=== PATIENT | female | born 1960 | race Caucasian/White ===

== ENCOUNTER 2016-12-25 11:09 | Emergency (ER) | payer MEDICARE, SELFPAY ==
[~2016-12-25 11:09] MED LIST: ALBUTEROL HFA6.7 GM INH; BENADRYL25 MG PO; DICLOFENAC POTA50 M1 PO; DOCUSATE SODIU1 EACH PO; FEOSOL325 MG PO; FIORICET/BUTALBI1 EA PO; IBUPROFEN800 MG PO; K-DUR20 MEQ PO; PHENERGAN25 M1 PO; PROZAC40 MG PO; TOPAMAX200 MG PO; ZEBETA5 MG PO
== END 2016-12-25 13:45 | disposition home or self-care (01) ==
LOC: ER 11:09
DX: R10.84 Generalized abdominal pain (principal); R19.7 Diarrhea, unspecified; R11.2 Nausea with vomiting, unspecified; F32.9 Major depressive disorder, single episode, unspecified; F43.10 Post-traumatic stress disorder, unspecified; K21.9 Gastro-esophageal reflux disease without esophagitis; G43.909 Migraine, unspecified, not intractable, without status migrainosus; Z90.49 Acquired absence of other specified parts of digestive tract; Z90.710 Acquired absence of both cervix and uterus; Z79.899 Other long term (current) drug therapy; Z88.2 Allergy status to sulfonamides; Z88.5 Allergy status to narcotic agent; Z88.8 Allergy status to other drugs, medicaments and biological substances
CPT/HCPCS: 36415; 96374; 96375; 96376; J1885

== ENCOUNTER 2017-01-11 00:23 | Emergency (ER) | payer MEDICARE, OTHER | END 2017-01-11 01:32 | disposition home or self-care (01) | LOC: ER 00:23 | DX: S90.562A Insect bite (nonvenomous), left ankle, initial encounter (principal); S90.561A Insect bite (nonvenomous), right ankle, initial encounter; K21.9 Gastro-esophageal reflux disease without esophagitis; F43.10 Post-traumatic stress disorder, unspecified; G47.30 Sleep apnea, unspecified; F32.9 Major depressive disorder, single episode, unspecified; Z90.49 Acquired absence of other specified parts of digestive tract; Z90.710 Acquired absence of both cervix and uterus; Z99.81 Dependence on supplemental oxygen; Z79.899 Other long term (current) drug therapy; Z88.2 Allergy status to sulfonamides; Z88.5 Allergy status to narcotic agent; Z88.8 Allergy status to other drugs, medicaments and biological substances; W57.XXXA Bitten or stung by nonvenomous insect and other nonvenomous arthropods, initial encounter ==

== ENCOUNTER → 2017-01-23 | Day surgery (SDC) | payer MEDICARE, OTHER | END | disposition home or self-care (01) | LOC: SDC 09:15 | DX: N30.10 Interstitial cystitis (chronic) without hematuria (principal); G89.29 Other chronic pain; R10.2 Pelvic and perineal pain; R30.0 Dysuria; N21.0 Calculus in bladder; Z87.440 Personal history of urinary (tract) infections; M79.7 Fibromyalgia; I45.6 Pre-excitation syndrome; Z90.710 Acquired absence of both cervix and uterus; Z90.49 Acquired absence of other specified parts of digestive tract; K21.9 Gastro-esophageal reflux disease without esophagitis; Z79.899 Other long term (current) drug therapy; Z88.5 Allergy status to narcotic agent; Z88.2 Allergy status to sulfonamides; Z88.8 Allergy status to other drugs, medicaments and biological substances; J45.909 Unspecified asthma, uncomplicated; J84.10 Pulmonary fibrosis, unspecified; Z99.81 Dependence on supplemental oxygen; I10 Essential (primary) hypertension; K76.0 Fatty (change of) liver, not elsewhere classified; M19.90 Unspecified osteoarthritis, unspecified site; M54.9 Dorsalgia, unspecified; F41.9 Anxiety disorder, unspecified; F32.9 Major depressive disorder, single episode, unspecified; Z85.841 Personal history of malignant neoplasm of brain; E66.01 Morbid (severe) obesity due to excess calories | CPT/HCPCS: C1758; J1885; J2704; Q9967 ==

== ENCOUNTER 2017-02-03 01:18 | Emergency (ER) | payer MEDICARE, OTHER | END 2017-02-03 03:35 | disposition home or self-care (01) | LOC: ER 01:18 | DX: R07.9 Chest pain, unspecified (principal); K21.9 Gastro-esophageal reflux disease without esophagitis; J45.909 Unspecified asthma, uncomplicated; Z88.2 Allergy status to sulfonamides; Z79.899 Other long term (current) drug therapy; Z88.8 Allergy status to other drugs, medicaments and biological substances | CPT/HCPCS: 36415 ==